=== PATIENT | male | born 1940 | race Caucasian/White ===

== ENCOUNTER 2025-02-26 21:51 | Inpatient (IN) | payer OTHER, SELFPAY ==
[2025-02-26 14:11] VITALS: BP 174/79
[2025-02-26 14:15] VITALS: BP 174/79
[2025-02-26 14:41] LABS: % Basophils 0.4 % (0-2); % Eosinophils 0.4 % (0-6); % Immature Granulocytes 0.5 % (0-0.5); % Monocytes 8.8 % (1.7-9.3); % Neutrophils 84.9 % (42.2-75.2); Absolute Basophils 0.1 10^3/uL (0-0.2); Absolute Eosinophils 0.1 10^3/uL (0-0.7); Absolute Immature Granulocytes 0.1 10^3/uL (0-0.05); Absolute Lymphocytes 0.7 10^3/uL (1.2-3.4); Absolute Monocytes 1.2 10^3/uL (0.1-0.6); Absolute Neutrophils 11.3 10^3/uL (1.4-6.5); Hematocrit 45.2 % (39.0-52.0); Hemoglobin 15.7 g/dL (13.0-18.0); Mean Corp Hgb Conc. 34.7 g/dL (33.0-37.0); Mean Corpuscular Hgb 31.5 pg (27.0-31.0); Mean Corpuscular Volume 90.8 fL (80.0-94.0); Mean Platelet Volume 8.7 fL (7.4-10.4); Nucleated Red Blood Cells % 0 % (-); Platelet Count 240 10^3/uL (130-400); Red Blood Cell Count 4.98 10^6/uL (4.70-6.10); Red Cell Dist. Width 12.3 % (11.5-14.5); White Blood Cell Count 13.3 10^3/uL (4.8-10.8)
[2025-02-26 14:47] LABS: ALT (SGPT) 116 U/L (0-50); AST (SGOT) 200 U/L (17-59); Albumin 4.6 g/dl (3.5-5.0); Alkaline Phosphatase 94 U/L (38-126); Blood Urea Nitrogen 24 mg/dl (9-20); Carbon Dioxide 28 mmol/L (22-30); Chloride 103 mmol/L (98-107); Glucose 136 mg/dl (70-99); Potassium 3.8 mmol/L (3.5-5.1); Sodium 144 mmol/L (135-145); Total Bilirubin 1.5 mg/dl (0.2-1.3); Total Protein 7.2 g/dl (6.3-8.2); eGFR > 60.00
[2025-02-26 14:58] LABS: Troponin I < 0.012 ng/ml
--- NOTE | 2025-02-26 14:58 | ED.GENMED ---
History of Present Illness
<Ranjeet Deleon PA-C - Last Filed: 02/26/25 15:12>
General
Chief Complaint: Chest Pain
Source: patient
Exam Limitations: none
Time Seen by Provider: 02/26/25 14:39
History of Present Illness
History of Present Illness:
84-year-old male presents complaining of pain to the area underneath his ribs that started about 3 hours prior to arrival. Pain is made worse with deep breathing. He was slightly nauseous but no vomiting. The pain does not radiate to the back.
No recent travel or surgery. He denies cough fever or hemoptysis. No prior abdominal surgical history
Phy Exam
<Ranjeet Deleon PA-C - Last Filed: 02/26/25 15:12>
Physical Exam
Physical Exam:
General: Well-appearing male no acute respiratory distress HEENT: Normocephalic atraumatic
Heart: Regular rate and rhythm
Lungs: Clear no wheeze
Abd: Soft, tender to RUQ, mild gaurding, + han's sign
Ext: NO cyanosis
Scores
<Saeed Stover Jr., PA-C - Last Filed: 02/26/25 20:49>
Heart Score for Chest Pain Patients
STEMI patient?: Not applicable
History: Slightly or Non-Suspicious
ECG: Normal
Age: >/= 65 years
Risk Factors: >/= 3 Risk Factors or History of CAD
Troponin: </= Normal Limit
Heart Score for Chest Pain Patients: 4
Heart Score Risk: 20.3% MACE over next 6 weeks
Course
<Ranjeet Deleon PA-C - Last Filed: 02/26/25 15:12>
Orders/Labs/Results
Orders:
Orders
02/26/25 14:14
Electrocardiogram (*1) Urgent
Reason for Study: Chest Pain
EKG- Treatment ONCE
02/26/25 14:22
CMP [Comprehensive Metabolic Panel] Urgent
Complete Blood Count/With Diff Urgent
Lipase Urgent
Comment: ADD ON
Troponin I Urgent
02/26/25 14:54
CR Chest - 2 Views Urgent
Comment:
Reason For Exam: chest pain
US Abdomen Complete/Upper Urgent
Comment:
Reason For Exam: ruq pain
02/26/25 14:55
Add On- LAB Urgent
Tests Added?: lipase
Abnormal Lab Results
02/26/25
14:22
WBC 13.3 H 10^3/uL
(4.8-10.8)
MCH 31.5 H pg
(27.0-31.0)
Abs Immat Gran (auto) 0.1 H 10^3/uL
(0-0.05)
Absolute Neuts (auto) 11.3 H 10^3/uL
(1.4-6.5)
Absolute Lymphs (auto) 0.7 L 10^3/uL
(1.2-3.4)
Absolute Monos (auto) 1.2 H 10^3/uL
(0.1-0.6)
Neutrophils % 84.9 H %
(42.2-75.2)
Lymphocytes % 5.0 L %
(20.5-51.1)
BUN 24 H mg/dl
(9-20)
Glucose 136 H mg/dl
(70-99)
Total Bilirubin 1.5 H mg/dl
(0.2-1.3)
AST 200 H U/L
(17-59)
ALT 116 H U/L
(0-50)
02/26/25 14:22
02/26/25 14:22
Vital Signs
Initial and Last Documented VS:
Initial Vital Signs
BP Pulse Ox
174/79 91
02/26/25 14:11 02/26/25 14:11
Last Documented Vital Signs
Temp Pulse Resp BP Pulse Ox
97.9 F 55 16 174/79 99
02/26/25 14:35 02/26/25 14:15 02/26/25 14:15 02/26/25 14:15 02/26/25 14:15
<Saeed Stover Jr., PA-C - Last Filed: 02/26/25 20:49>
Orders/Labs/Results
Orders:
Orders
02/26/25 14:14
Electrocardiogram (*1) Urgent
Reason for Study: Chest Pain
EKG- Treatment ONCE
02/26/25 14:22
CMP [Comprehensive Metabolic Panel] Urgent
Complete Blood Count/With Diff Urgent
Lipase Urgent
Comment: ADD ON
Troponin I Urgent
02/26/25 14:54
CR Chest - 2 Views Urgent
Comment:
Reason For Exam: chest pain
US Abdomen Complete/Upper Urgent
Comment:
Reason For Exam: ruq pain
02/26/25 14:55
Add On- LAB Urgent
Tests Added?: lipase
Abnormal Lab Results
02/26/25
14:22
WBC 13.3 H 10^3/uL
(4.8-10.8)
MCH 31.5 H pg
(27.0-31.0)
Abs Immat Gran (auto) 0.1 H 10^3/uL
(0-0.05)
Absolute Neuts (auto) 11.3 H 10^3/uL
(1.4-6.5)
Absolute Lymphs (auto) 0.7 L 10^3/uL
(1.2-3.4)
Absolute Monos (auto) 1.2 H 10^3/uL
(0.1-0.6)
Neutrophils % 84.9 H %
(42.2-75.2)
Lymphocytes % 5.0 L %
(20.5-51.1)
BUN 24 H mg/dl
(9-20)
Glucose 136 H mg/dl
(70-99)
Total Bilirubin 1.5 H mg/dl
(0.2-1.3)
AST 200 H U/L
(17-59)
ALT 116 H U/L
(0-50)
02/26/25 14:22
02/26/25 14:22
Vital Signs
Initial and Last Documented VS:
Initial Vital Signs
BP Pulse Ox
174/79 91
02/26/25 14:11 02/26/25 14:11
Last Documented Vital Signs
Temp Pulse Resp BP Pulse Ox
97.9 F 55 16 174/79 99
02/26/25 14:35 02/26/25 14:15 02/26/25 14:15 02/26/25 14:15 02/26/25 14:15
<Ranjeet Deleon PA-C - Last Filed: 02/26/25 15:12>
MDM/Problems Addressed
Differential Diagnosis Includes:
RUQ pain. Question biliary colic versus pneumonia versus pancreatitis versus constipation
Labs demonstrate slight elevation in the liver functions. Ultrasound abdomen pending chest x-ray pending
<Saeed Stover Jr., PA-C - Last Filed: 02/26/25 20:49>
*Critical Care Note
Total Time (30-74mins, 75-104mins- exclusive of procedures): Not Applicable
<Saeed Stover Jr., PA-C - Last Filed: 02/26/25 20:49>
Update Note
Update Note:
0: ES//patient found to have inflammation of the gallbladder as well as distention. Concern for possible early cholecystitis. Plan to admit for monitoring overnight and general surgery consultation in the morning. General surgery was consulted.
ED Attending Note
<Ranjeet Deleon PA-C - Last Filed: 02/26/25 15:12>
-
Portions of this chart may have been created with voice recognition software.� Occasional wrong word or��sound alike� substitutions may have occurred due to the inherent limitations of voice recognition software.
Discharge Plan
Departure
Patient Disposition: Admit
Date of Disposition: 02/26/25
Time of Disposition: 20:49
Admit to: Med/Surg
Admit to doctor: Estella
Presentation/result/management discussed w/ accepting MD/DO: Hospitalist
Patient with high blood pressure during this ER visit?: No
Condition: Good
Covid-19: Not Applicable
Discharge Problem:
Acute cholecystitis
Prescriptions:
No Action
omeprazole
1 tab PO . DIRECTED
sertraline
1 tab PO . DIRECTED
Referrals:
Iban Campuzano MD [Family Provider] -
Interventions
Interventions:
*Risk Screen - Suicide Last Done: 02/26/25 14:17
*General Assessment Last Done: 02/26/25 14:17
*Neglect/Abuse Screening Last Done: 02/26/25 14:17
*ED- Fall Risk Assessment Last Done: 02/26/25 14:28
*ED COVID-19 Vaccine History Last Done: 02/26/25 14:28
ED- Cardiac Assessment Last Done: 02/26/25 14:29
Discharge Date and Time
Print Language: DANISH
[2025-02-26 15:25] LABS: Lipase 161 U/L (23-300)
[2025-02-26 19:50] VITALS: BP 130/67
[2025-02-26 20:00] VITALS: BP 127/59
--- NOTE | 2025-02-26 20:52 | W.PN.UPDATE ---
Update Note
Progress Note Update
VSS
02/26/25
14:15 02/26/25
14:35
Temp 97.9 F
Temp route: Oral
Pulse 55
Resp Rate 16
Blood pressure 174/79
SaO2 99
Oxygen Mode of Delivery Room air
PE
Gen: not toxic
HEENT: anicteric
Neck: supple
Lungs: CTA
Cor: RRR S1 S2
Abdomen: Soft, tender to RUQ, mild guarding, + han's sign
HOSPICE ENTRANCE ATTENDANT: AAO3 , grossly NFND
MS: no edema
Psych: appropriate
02/26/25
14:22
WBC 13.3 H
Hgb 15.7
Plt Count 240
BUN 24 H
Creatinine 1.0
eGFR > 60.00
Glucose 136 H
Total Bilirubin 1.5 H
AST 200 H
ALT 116 H
Troponin I < 0.012
Lipase 161
CXR
1. Mild bilateral lung hyperinflation suggesting chronic obstructive pulmonary disease (COPD).
2. Mild biapical pleural thickening and subpleural scarring.
3. Superior endplate compression fracture of a midthoracic vertebral body.
US Abdomen complete/ upper
1. Mild gallbladder distention and diffuse gallbladder wall thickening.
2. Sludge layering in the gallbladder fundus.
3. Mild splenomegaly.
4. Mild chronic bilateral renal disease.
5. Severe calcific atherosclerotic plaque in the abdominal aorta.
NO PRIOR hospitalist admission:
ASSESSMENT & PLAN
Highly suspicious for acute acalculous cholecystitis ? passage of stone
Clinical and Sono POS RUQ tenderness
Afebrile leucocytosis with transaminitis
HX PCN allergy
- NPO and IVF
- PRN Narcotic analgesia
- PRN anti emetics
- Empiric IV LVQ and flagyl
- Trend T , WCC and LFTs daily
- GS consulted
GERD
- IV PPI daily
DVT Px: SQH
Full code
IP MS
--- NOTE | 2025-02-26 20:55 | HPS.HSE ---
Family Physician
-
Family Physician: Iban Campuzano
Chief Complaint
-
Right upper quadrant abdominal pain with nausea
History of Present Illness
84-year-old male complaining of pain in his right upper quadrant starting about 3 hours prior to arrival in the ER approximate 11:30 AM, along with nausea. He denies any radiation to the back. The patient denies headache, fever, chills, chest
pain, palpitations, shortness of breath, cough, vomiting, diarrhea, urinary symptoms. Ultrasound in the ER which shown to have inflammation of the gallbladder as well as distention concerning for possible early cholecystitis Case was discussed with
general surgery by the ER who will see in the a.m. patient has past medical history of GERD, depression.
Medical History
Past Medical History
Past Medical History: Reports Other
Additional Past Medical History:
GERD
Depression
Past Surgical History: Reports Other
Additional Past Surgical History:
Great ankles Achilles rupture repair
Inguinal hernia repair 1980s unsure what side
Social History
Tobacco: Non-smoker
Alcohol: None
Drug: None
Personal: Single
Living: Alone
Employment: Retired
Family History
Family History: Other (Father history dementia, DM 2, mother history breast cancer, fall with fractured leg of pneumonia, 2 sisters healthy)
Allergies / Home Medications
Allergies reflects when Allergies were last updated in [facility].
Home Medications with original date entered in [facility]
Allergy/Medication List:
Allergies
Allergy/AdvReac Type Severity Reaction Status Date / Time
Penicillins Allergy Pharmacy Verified 02/26/25 14:13
to Review
Home Medications
omeprazole 1 tab PO . DIRECTED 02/26/25
sertraline 1 tab PO . DIRECTED 02/26/25
Review of Systems
-
History Source: Patient and Family (Son Dc at bedside power of electro tech)
A 12 point ROS was completed and negative except as noted: Yes
Constitutional: Denies Fever or Chills
EENT: Denies Sore Throat or Runny Nose
Respiratory: Denies Cough or Trouble Breathing
Cardiac: Denies Chest Pain, Diaphoresis, Palpitations or Syncope
Abdomen/GI: Reports Abdominal Pain (Right upper quadrant) and Nausea; Denies Vomiting, Diarrhea, Constipated or Bloody Stools
: Denies Dysuria, Frequency, Flank Pain, Incontinence, Difficulty Voiding or Urgency
Musculoskeletal: Denies Joint Pain or Edema
Skin: Denies Itching or Rash
Neurological: Denies Dizzy, Headache or Weakness
Endocrine: Reports No Symptoms
Hematologic/Lymphatic: Reports No Symptoms
Psych: Reports Calm
Physical Exam
Vital Signs
Vital Signs
Temp Pulse Resp BP Pulse Ox
97.9 F 55 16 174/79 99
02/26/25 14:35 02/26/25 14:15 02/26/25 14:15 02/26/25 14:15 02/26/25 14:15
Physical Exam
General: Conversant; No Pain, Fever or Chills
HEENT: NormoCephalic, Anicteric, Moist mucous membranes, PERRLA, [place] Conjunctivae and No Ptosis
Respiratory: Clear; No Wheezes, Rales or Rhonchi
Cardiac: S1/S2 and Regular Rhythm; No Murmur, Rub, Gallop or Peripheral Edema
GI: Soft, Non Distended, Normal Bowel Sounds, Tender (Slight tenderness right upper quadrant) and No Hepatosplenomegaly
Rectal: Deferred by Provider
Genito-urinary: Deferred by me
Musculoskeletal: No Clubbing, No Cyanosis and No Edema
Skin: Warm and Dry; No Rash or Jaundice
Neuro: AO x 3, No Motor Deficits, Nonfocal/grossly intact, Cranial Nerves Intact and No Sensory Deficits; No Slurred Speech, Facial Droop, Tremors or Sedated
Psych: Calm
Laboratory Results
-
02/26/25 14:22
02/26/25 14:22
Laboratory Results
Total Bilirubin 1.5 mg/dl (0.2-1.3) H 02/26/25 14:22
AST 200 U/L (17-59) H 02/26/25 14:22
ALT 116 U/L (0-50) H 02/26/25 14:22
Alkaline Phosphatase 94 U/L (38-126) 02/26/25 14:22
Troponin I < 0.012 ng/ml 02/26/25 14:22
Lipase 161 U/L (23-300) 02/26/25 14:22
Data Reviewed
-
Ultrasound: Report Reviewed by me
Lab Data: Labs Reviewed by me
Impression/Plan
-
Impression/plan:
Admit to MedSurg
#Abdominal pain/acute transaminitis concern for acute cholecystitis
Symptoms today right upper quadrant pain with nausea x 3 hours
WBC 13.3 with left shift, HR 55, temp 97.9 F, 174/79
T. bili 1.5, AST 200, ALT 116
- N.p.o.
- IV NSS 80 cc an hour
-pain control tramadol as needed moderate pain, IV morphine severe pain
-IV Zofran as needed
-IV Levaquin, IV Flagyl
- Consult general surgery-Dr. Mckeon aware
- Will follow CBC, CMP
EKG: Sinus bradycardia 55 bpm, QTc 424 MS otherwise normal
#GERD
Will change oral omeprazole to IV Protonix 40 mg daily
#Depression
Continue Zoloft
DVT prophylaxis
SCDs
Full code
[2025-02-26 21:40] VITALS: BMI 23.8
[2025-02-26] MEDS: LEVAQUIN 100 IV (22:24)
--- NOTE | 2025-02-26 23:10 | PTCARENOTE ---
Pt admitted to 337-1 from ED. Ambulated with steady gait to bed. AAOx3, VSS, denies pain. Call tinajero within reach.
[2025-02-26 23:15] VITALS: BP 112/59
[2025-02-26 23:16] VITALS: BMI 22.7
[2025-02-26] MEDS: ZOLOFT 50 MG PO (23:33)
[2025-02-26] MEDS: NSS 1000 IV (23:33)
[2025-02-26] MEDS: FLAGYL 500 MG 100 IV (23:33)
[2025-02-27] VITALS (10 sets, daily range): BP systolic 114–142; BP diastolic 50–77; PULSE 63–64; O2SAT 96
[2025-02-27] MEDS: MELATONIN 5 MG PO ×2 (01:57→21:25)
[2025-02-27] MEDS: TYLENOL 650 MG PO (02:02)
[2025-02-27 06:09] LABS: % Basophils 0.3 % (0-2); % Eosinophils 0.2 % (0-6); % Immature Granulocytes 0.5 % (0-0.5); % Lymphocytes 2.3 % (20.5-51.1); % Monocytes 7.8 % (1.7-9.3); % Neutrophils 88.9 % (42.2-75.2); Absolute Immature Granulocytes 0.1 10^3/uL (0-0.05); Absolute Lymphocytes 0.3 10^3/uL (1.2-3.4); Absolute Monocytes 0.9 10^3/uL (0.1-0.6); Absolute Neutrophils 9.9 10^3/uL (1.4-6.5); Hematocrit 37.9 % (39.0-52.0); Hemoglobin 12.9 g/dL (13.0-18.0); Mean Corpuscular Hgb 30.8 pg (27.0-31.0); Mean Corpuscular Volume 90.5 fL (80.0-94.0); Nucleated Red Blood Cells % 0 % (-); Platelet Count 158 10^3/uL (130-400); Red Blood Cell Count 4.19 10^6/uL (4.70-6.10); Red Cell Dist. Width 12.3 % (11.5-14.5); White Blood Cell Count 11.1 10^3/uL (4.8-10.8)
[2025-02-27] MEDS: FLAGYL 500 MG 100 IV ×2 (06:13→22:41)
[2025-02-27 06:25] LABS: Albumin 3.8 g/dl (3.5-5.0); Alkaline Phosphatase 116 U/L (38-126); Blood Urea Nitrogen 19 mg/dl (9-20); Calcium 9.4 mg/dl (8.4-10.2); Carbon Dioxide 27 mmol/L (22-30); Chloride 106 mmol/L (98-107); Estimated Creatinine Clearance 57 ml/min; Glucose 116 mg/dl (70-99); HDL Cholesterol 58 mg/dl; LDL Cholesterol, Calculated 119 mg/dl; Potassium 4.3 mmol/L (3.5-5.1); Sodium 140 mmol/L (135-145); Total Bilirubin 3.7 mg/dl (0.2-1.3); Total Cholesterol 190 mg/dl (50-199); Total Protein 5.9 g/dl (6.3-8.2); Triglyceride 69 mg/dl (10-149); Very Low Density Lipoprotein 13 mg/dl (0-30); eGFR > 60.00
[2025-02-27 06:37] LABS: ALT (SGPT) 870 U/L (0-50); AST (SGOT) 779 U/L (17-59)
[2025-02-27] MEDS: PROTONIX IV 40 MG IV (07:58)
[2025-02-27] MEDS: NSS (PRESERVATIVE FREE) 10 ML IV (07:58)
--- NOTE | 2025-02-27 10:07 | CON.GS ---
Addendum entered and electronically signed by Giacomo Rivera MD 02/27/25 15:50:
I saw and examined the patient independently.
The Financial Services Manager's note was reviewed and I agree with the note, assessment and plan except where noted below.
Comment: This is an 84-year-old male with a history of an open left inguinal hernia repair who presents with right upper quadrant abdominal pain radiating across his epigastrium found to have elevated LFTs, rising today. Ultrasound shows sludge in
the thickened, distended gallbladder.
I did discuss this case with will plan for laparoscopic cholecystectomy with cholangiogram in the OR today. I did discuss this case preoperatively with GI and as they have a significant number of procedures that it would be unlikely to perform an
ERCP today so we will forego MRCP for now and plan for GI consult pending the findings of the cholangiogram.
N.p.o., IV fluids, IV antibiotics ordered.
Risks/Benefits/Alternatives, expected postoperative course and possible complications (bleeding, infection, injury to surrounding structures, acute/chronic pain) discussed at length. Patient wishes to proceed with surgery. All questions answered.
Consent obtained.
I spent 65 minutes in total for the care of this patient today including direct patient care and counseling, reviewing labs, imaging, coordination of care, as well as documentation.
Original Note:
Consultation
-
Date/Time Consultation Performed: 02/27/25914
Medical History
-
Chief Complaint: RUQ pain
History of Present Illness:
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
associated nausea. His symptoms persisted throughout the day causing him to present through the ED for evaluation. He denies fevers or chills. He denies bowel or bladder changes. He denies prior episodes in the past. On exam, the RUQ is mildly
tender to palpation. Mild jaundice present.
Past Medical History
Past Medical History: GERD (Davila's)
Past Surgical History: Hernia Repair (open left inguinal hernia repair), Orthopedic (Achilles repair) and Other (Cataracts)
Social History
Tobacco: Non-Smoker
Alcohol: None
Living: Alone
Employment: Retired
Family History
Family History: Cancer (father prostate, mother breast)
Allergies / Home Medications
Allergy/AdvReac Type Severity Reaction Status Date / Time
Penicillins Allergy Pharmacy Verified 02/26/25 14:13
to Review
�Medication �Instructions �Recorded �Confirmed �Type
omeprazole 1 tab PO . DIRECTED 02/26/25 02/26/25 History
sertraline 50 mg PO HS 02/26/25 02/26/25 History
Review of Systems
-
History Source: Patient
All other systems: Negative unless noted
A 10 point review of systems was completed, and was negative except as per HPI.
Physical Exam
Vital Signs
Temp Pulse Resp BP Pulse Ox
97.5 F 61 16 116/64 98
02/27/25 07:39 02/27/25 07:39 02/27/25 07:39 02/27/25 07:39 02/27/25 07:39
02/26/25 02/27/25 02/28/25
06:59 06:59 06:59
Actual Weight 65.544 kg
Body Mass Index (BMI) 22.7
Lab Results
02/27/25 05:10
02/27/25 05:10
WBC 11.1 10^3/uL (4.8-10.8) H 02/27/25 05:10
Hgb 12.9 g/dL (13.0-18.0) L 02/27/25 05:10
Hct 37.9 % (39.0-52.0) L 02/27/25 05:10
Plt Count 158 10^3/uL (130-400) D 02/27/25 05:10
Abs Immat Gran (auto) 0.1 10^3/uL (0-0.05) H 02/27/25 05:10
Neutrophils % 88.9 % (42.2-75.2) H 02/27/25 05:10
Physical Exam
General: Well Developed and Well Nourished
HEENT: Moist Mucous Membranes
Respiratory: Non Labored Respirations
GI: Soft, Non Distended and Tender (RUQ)
Skin: Warm, Dry and Jaundice (mild)
Neuro: Awake, Alert and AO x 3
Psych: Calm
Data Reviewed
-
Ultrasound: Image Personally Visualized and interpreted, Report Reviewed by me, Discussed with Physician and Discussed with Patient
Labs: Labs Reviewed by me, Discussed with Physician and Discussed with Patient
Old Records: Reviewed
Assessment / Plan
-
84 yo male presenting through the ED with RUQ pain radiating into the epigastrium and into his back with associated nausea over the past 24hours. US imaging concerning for acute cholecystitis with cholelithiasis present, mild gallbladder distention
and diffuse gallbladder wall thickening present. Leukocytosis present on admission and trending down on ABX which were initiated in the ED. LFT's mildly elevated on presentation and now trending upwards (bili 1.5 to 3.7) raising suspicion for
possible choledocholithiasis. Afebrile with stable vital signs.
--Check MRCP, may need GI evaluation for ERCP pending findings
--Tentative OR today for lap don
--Keep NPO
--Analgesics/antiemetics prn
--IVF while NPO
--SCDs for VTE ppx
--- NOTE | 2025-02-27 10:45 | W.PN.HOSP.TC ---
Today's Communication/Plan
-
see A/P
Assessment / Plan
Assessment / Plan
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 Associated with nausea.
Ultrasound in the ER showed inflammation of the gallbladder as well as distention, concerning for possible early cholecystitis.
Abd US:
1. Mild gallbladder distention and diffuse gallbladder wall thickening.
2. Sludge layering in the gallbladder fundus.
3. Mild splenomegaly.
4. Mild chronic bilateral renal disease.
5. Severe calcific atherosclerotic plaque in the abdominal aorta.
A/P:
# Likely acute acalculous cholecystitis, ?passage of stone
# leucocytosis with transaminitis, due to above
Abd pain has resolved, overall asymptomatic and clinically stable
NPO and IVF
Pain control with IV Morphine PRN
Zofran PRN
IV Protonix for gastric protection
Cont empiric Abx Levaquin and Flagyl
trend LFT
Follow MRCP
GS on board, plan for OR today for lap don
# GERD
IV PPI daily
# Depression
Continue Zoloft
DVT prophylaxis: SCDs
Full code
DW son at bedside
Anticipated Discharge: > 48 hours
Subjective/Interval History
-
Date of Service: February 27, 2025
Objective Data
-
Labs:
Laboratory Results
02/27/25
05:10
WBC 11.1 H
Hgb 12.9 L
Hct 37.9 L
Plt Count 158 D
Sodium 140
Potassium 4.3
Chloride 106
Carbon Dioxide 27
BUN 19
Creatinine 0.9
Glucose 116 H
Calcium 9.4
Total Bilirubin 3.7 H D
AST 779 H*
ALT 870 H*
Alkaline Phosphatase 116
Vital Signs:
Vital Signs
Temp Pulse Resp BP Pulse Ox
36.4 C 61 16 116/64 98
02/27/25 07:39 02/27/25 07:39 02/27/25 07:39 02/27/25 07:39 02/27/25 07:39
I&O
02/26/25 02/27/25 02/28/25
06:59 06:59 06:59
Intake Total 770 / 770
Balance 770 / 770
Review of Systems
-
History Source: Patient
All other systems: Reviewed and negative
Abdomen/GI: Denies Abdominal Pain, Nausea or Vomiting
Physical Exam
-
General: Well Developed, Well Nourished, No Apparent Distress, Comfortable and Conversant; Negative Respiratory Distress
HEENT: Normocephalic, Atraumatic, Nose Appears Normal and Ears Appear Normal; Negative Oxygen
Respiratory: Clear to Auscultation and Non Labored Respirations; Negative Accessory Resp Muscle Use
Cardiac: Regular Rhythm and S1/S2
GI: Soft, Nontender and Nondistended
Skin: Warm and Dry
Neuro: Awake, Alert, Oriented, AO x 3 and Nonfocal/Grossly Intact
Psych: Calm and Intact Judgement/Insight
Data Reviewed
-
Ultrasound: Report Reviewed by me
Labs: Labs Reviewed by me
[2025-02-27] MEDS: FLAGYL 500 MG IV (13:29)
--- NOTE | 2025-02-27 14:26 | W.SUR.PREOP ---
Pre-Operative Surgical Note
-
I have examined this patient prior to the performance of the scheduled procedure.
The patient's condition is unchanged from the time of the current History and
Physical and the patient is able to undergo the scheduled procedure.
--- NOTE | 2025-02-27 14:26 | W.IMMPOSTOP ---
Surgical Immed Post Op Note
-
Primary Surgeon: Giacomo Rivera MD
Assisting Surgeon: JEREMY Christopher
Pre-op Diagnosis: Acute cholecystitis, elevated liver enzymes
Post-op Diagnosis: Same
Procedure Performed: Laparoscopic cholecystectomy with cholangiogram
Anesthesia Type: General
Specimen / Cultures: Gallbladder and contents
Estimated Blood Loss: 3 cc
Complications: None
Operative Findings: Fairly the normal-appearing gallbladder but distended with some mild inflammation in the cystic triangle. Critical view of safety obtained prior to a cholangiogram which demonstrated a mildly dilated common bile duct but no
distal filling defects.
POST OP PLAN:
Imaging: None
Labs: Routine AM
Diet: Advance to low-fat as tolerated
Analgesia: Toradol as needed. Avoid Tylenol given elevated LFTs. Jeannine 5mg q6 PRN, Dilaudid 0.5mg q2h PRN
Neuro/vascular checks: q4h
AC/AP: Hold Therapeutic AC, Ok for DVT PPx
Activity: Ad Jaja
Wound/Incisions/Drains: Routine
Abx: Would continue antibiotics x 24 hours
Dispo: RNF, anticipate discharge home tomorrow pending downtrending LFTs.
--- NOTE | 2025-02-27 14:31 | OR.RPT ---
Operative Report
Operative Report
Patient Name: Pacheco Luna
: 1940
Date of Operation: 02/27/2025
Preoperative Diagnosis: Acute cholecystitis
Postoperative Diagnosis: Same
Procedure(s):
Laparoscopic Cholecystectomy with Cholangiogram
Surgeon(s):
Dr. Rivera
Film Color Tester(s):
JEREMY Christopher
Anesthesia: General
Estimated Blood Loss: 3 cc
Urine Output: None
Drains/Lines/Implants: None
Specimens:
1. Gallbladder and contents
HPI/Surgical Indications:
This is an 84-year-old male who presents with 1 day of right upper quadrant abdominal pain. Exam, labs and imaging are consistent with acute cholecystitis. Risks/Benefits/Alternatives were discussed at length, and the patient agreed to proceed with
surgery.
Operative Findings: Fairly the normal-appearing gallbladder but distended with some mild inflammation in the cystic triangle. Critical view of safety obtained prior to a cholangiogram which demonstrated a mildly dilated common bile duct but no
distal filling defects.
Procedure Description:
The patient was brought to the Operating Room and placed in the supine position with one arm tucked. Following uneventful induction of general endotracheal anesthesia, an orogastric tube was placed. The abdomen was prepped and draped in the usual
sterile fashion. A timeout was performed confirming the procedure, consent, and that IV antibiotics were infused and sequential compression devices were confirmed to be on. The abdomen was entered using an infraumbilical open Thong technique with
a 12 mm balloon-tipped trocar. Pneumoperitoneum to 15 mmHg pressure was obtained without difficulty and we confirmed that no injury had occurred during our entry. The patient was positioned in reverse Trendelenberg and rotated with the right side
up slightly. Three (3) 5mm trocars were then placed along the right subcostal margin. The gallbladder was distended but otherwise looked normal. A locking grasping forceps was placed on the fundus of the gallbladder where it was then retracted
cephalad and to the right. Using appropriate grasping instruments, the peritoneum overlying the triangle of Calot was incised and extended superiorly on both the anterior and posterior gallbladder jimenes. The infundibulum was dissected off the
cystic plate. The cystic triangle was dissected until a critical view of safety was achieved. The cystic artery was medialized, dissected and controlled with 2 proximal clips and 1 distal. The cystic duct/gallbladder junction in turn was identified,
dissected circumferentially and a clip was placed. A ductotomy was made and a cholangiocatheter on an Tinajero clamp was inserted into the cystic duct. A C-arm was draped and brought into the field. An intra-operative cholangiogram was performed and
was noted to have:
No filling defects in the biliary tree
Slight dilation of the common bile ducts
Brisk flow of contrast into the duodenum
Normal biliary anatomy
The catheter was then removed and the cystic duct was controlled with a clip followed by 0 PDS Endoloop. After ensuring both the artery and duct were divided, the gallbladder was freed from the liver using electrocautery. There was some spillage
of bile, but no spillage of stones. The gallbladder bed was inspected and excellent hemostasis was obtained. The gallbladder was extracted through the 12 mm trocar site using an endocatch bag. The abdomen was again irrigated and excellent
hemostasis was assured. All remaining trocars were then removed and the pneumoperitoneum was evacuated. The 12 mm trocar site was closed using 0 PDS suture. All trocar sites were closed at the skin level using 4-0 Monocryl followed by Dermabond.
Overall, the patient tolerated the procedure well and was taken to the Recovery Room postoperatively in stable condition.
I was the attending physician and performed the procedure with assistance of the PA above. The assistance of JEREMY Christopher was required due to the complexity of the procedure. During the procedure Neha assisted with port placement, tissue
retraction, resection, and closure of the wounds. I was present for all portions of the case, excluding skin closure.
Giacomo Rivear MD
[2025-02-27] MEDS: NSS 1000 IV (17:24)
[2025-02-27] MEDS: ULTRAM 50 MG PO (20:04)
[2025-02-27] MEDS: LEVAQUIN 100 IV (21:23)
[2025-02-27] MEDS: ZOLOFT 50 MG PO (21:24)
[2025-02-27] MEDS: MORPHINE SULFATE 2 MG IV (22:58)
[2025-02-28 03:06] VITALS: BP 109/50
[2025-02-28] MEDS: FLAGYL 500 MG 100 IV (05:18)
[2025-02-28 05:48] LABS: % Basophils 0.1 % (0-2); % Eosinophils 0.1 % (0-6); % Immature Granulocytes 0.5 % (0-0.5); % Lymphocytes 2.1 % (20.5-51.1); % Monocytes 7.2 % (1.7-9.3); Absolute Immature Granulocytes 0.1 10^3/uL (0-0.05); Absolute Lymphocytes 0.2 10^3/uL (1.2-3.4); Absolute Monocytes 0.8 10^3/uL (0.1-0.6); Absolute Neutrophils 9.9 10^3/uL (1.4-6.5); Hematocrit 35.9 % (39.0-52.0); Hemoglobin 12.1 g/dL (13.0-18.0); Mean Corp Hgb Conc. 33.7 g/dL (33.0-37.0); Mean Corpuscular Hgb 30.7 pg (27.0-31.0); Mean Corpuscular Volume 91.1 fL (80.0-94.0); Mean Platelet Volume 9.1 fL (7.4-10.4); Nucleated Red Blood Cells % 0 % (-); Platelet Count 151 10^3/uL (130-400); Red Blood Cell Count 3.94 10^6/uL (4.70-6.10); Red Cell Dist. Width 12.6 % (11.5-14.5)
[2025-02-28 07:00] LABS: ALT (SGPT) 539 U/L (0-50); AST (SGOT) 347 U/L (17-59); Albumin 3.4 g/dl (3.5-5.0); Alkaline Phosphatase 110 U/L (38-126); Blood Urea Nitrogen 24 mg/dl (9-20); Calcium 8.3 mg/dl (8.4-10.2); Carbon Dioxide 23 mmol/L (22-30); Chloride 108 mmol/L (98-107); Estimated Creatinine Clearance 57 ml/min; Glucose 99 mg/dl (70-99); Magnesium 1.8 mg/dl (1.6-2.3); Potassium 4.4 mmol/L (3.5-5.1); Sodium 140 mmol/L (135-145); Total Bilirubin 2.3 mg/dl (0.2-1.3); Total Protein 5.5 g/dl (6.3-8.2); eGFR > 60.00
[2025-02-28 07:57] VITALS: BP 105/57
[2025-02-28] MEDS: NSS (PRESERVATIVE FREE) 10 ML IV (09:38)
[2025-02-28] MEDS: PROTONIX IV 40 MG IV (09:38)
--- NOTE | 2025-02-28 09:48 | W.PN.GS2 ---
Today's Communication / Plan
-
Dispo planning
Assessment / Plan
-
This is an 84-year-old male POD #1 status post laparoscopic cholecystectomy for cholecystitis. Doing well, expected postoperative course.
Okay to DC from a surgery perspective.
[facility] instructions updated.
Time Spent
Total Time Spent with Patient (in minutes): 20
Subjective Data
-
Date of Service: February 28, 2025
Interval Events:
No acute events overnight. Slept well. Pain Controlled. Denies Nausea/Vomiting, +bowel function. Tolerating diet.
Objective Data
-
Intake and Output
02/27/25 02/28/25 03/01/25
06:59 06:59 06:59
Intake Total 770 / 770 2360 / 2360
Balance 770 / 770 2360 / 2360
Intake:
Oral fluids 120 / 120 1200 / 1200
IV fluids (Total) 450 / 450 860 / 860
Normosol 100 / 100
IV piggybacks 200 / 200 300 / 300
Other:
Number of approximated MODERATE 1 1
amounts of urine
Vital Signs
Temp Pulse Resp BP Pulse Ox
98.8 F 59 18 105/57 93
02/28/25 07:57 02/28/25 07:57 02/28/25 07:57 02/28/25 07:57 02/28/25 07:57
Lab Results
02/28/25 05:27
02/28/25 05:27
Calcium 8.3 mg/dl (8.4-10.2) L 02/28/25 05:27
Magnesium 1.8 mg/dl (1.6-2.3) 02/28/25 05:27
Total Bilirubin 2.3 mg/dl (0.2-1.3) H 02/28/25 05:27
AST 347 U/L (17-59) H 02/28/25 05:27
ALT 539 U/L (0-50) H* 02/28/25 05:27
Alkaline Phosphatase 110 U/L (38-126) 02/28/25 05:27
Total Protein 5.5 g/dl (6.3-8.2) L 02/28/25 05:27
Albumin 3.4 g/dl (3.5-5.0) L 02/28/25 05:27
Physical Exam
-
GENERAL/NEURO: Awake, Alert, no distress
CHEST: Unlabored breathing on RA
ABDOMEN: Soft, Non-Tender, Non-Distended, incisions clean dry and intact, some bruising around the periumbilical port site.
Patient has a stanford catheter: No
Patient has a central line: No
--- NOTE | 2025-02-28 10:03 | W.PN.HOSP.TC ---
Addendum entered and electronically signed by Annetta Werner MD 02/28/25 14:32:
Total DC time 40 minutes
Original Note:
Today's Communication/Plan
-
see A/P
Assessment / Plan
Assessment / Plan
HPI: 84-year-old male p/w right upper quadrant abd pain that started about 3 hours [employer]TE[employer]. Associated with nausea.
Ultrasound in the ER showed inflammation of the gallbladder as well as distention, concerning for possible early cholecystitis.
Abd US:
1. Mild gallbladder distention and diffuse gallbladder wall thickening.
2. Sludge layering in the gallbladder fundus.
3. Mild splenomegaly.
4. Mild chronic bilateral renal disease.
5. Severe calcific atherosclerotic plaque in the abdominal aorta.
A/P:
# acute mild cholecystitis
# leucocytosis with transaminitis, due to above
Abd pain has resolved, overall asymptomatic and clinically stable
s/p laparoscopic cholecystectomy with Cholangiogram by 02/27
Cont to trend LFT outpt with PCP (LFT improving, but still significantly elevated today)
Informed to cont low fat diet going forward
GS on board, cleared for DC
# GERD
IV PPI daily
# Depression
Continue Zoloft
DVT prophylaxis: SCDs
Full code
DW son on the phone
Anticipated Discharge: Today
Subjective/Interval History
-
Date of Service: February 28, 2025
Objective Data
-
Labs:
Laboratory Results
02/28/25
05:27
WBC 11.0 H
Hgb 12.1 L
Hct 35.9 L
Plt Count 151
Sodium 140
Potassium 4.4
Chloride 108 H
Carbon Dioxide 23
BUN 24 H
Creatinine 0.9
Glucose 99
Calcium 8.3 L
Total Bilirubin 2.3 H
AST 347 H
ALT 539 H*
Alkaline Phosphatase 110
Vital Signs:
Vital Signs
Temp Pulse Resp BP Pulse Ox
37.1 C 59 18 105/57 93
02/28/25 07:57 02/28/25 07:57 02/28/25 07:57 02/28/25 07:57 02/28/25 07:57
I&O
02/27/25 02/28/25 03/01/25
06:59 06:59 06:59
Intake Total 770 / 770 2360 / 2360
Balance 770 / 770 2360 / 2360
Review of Systems
-
History Source: Patient
All other systems: Reviewed and negative
Abdomen/GI: Denies Abdominal Pain
Physical Exam
-
General: Well Developed, Well Nourished, No Apparent Distress, Comfortable and Conversant; Negative Respiratory Distress
HEENT: Normocephalic, Atraumatic, Nose Appears Normal and Ears Appear Normal; Negative Oxygen
Respiratory: Clear to Auscultation and Non Labored Respirations; Negative Accessory Resp Muscle Use
Cardiac: Regular Rhythm and S1/S2
GI: Soft, Nontender and Nondistended
Skin: Warm and Dry
Neuro: Awake, Alert, Oriented, AO x 3 and Nonfocal/Grossly Intact
Psych: Calm and Intact Judgement/Insight
Data Reviewed
-
Ultrasound: Report Reviewed by me
Labs: Labs Reviewed by me
--- NOTE | 2025-02-28 10:26 | CM ---
CM met with Pacheco at bedside this AM. Pacheco is s/p cholecystectomy and cleared for discharge to home today.
Pacheco lives with his in a 2 story home with no entry steps. A full flight of steps to the 2nd level. Pacheco is very active; likes working outdoors; (I) amb and adls with no DME in the home. IMM given
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 She is currently at [facility] to give Pacheco time to recuperate at home. Pacheco's son will provide transport home today.
Plan: Discharge to home with no needs.
PCP: Iban Bhatt
Pharm: [facility] in [place]
[2025-02-28 11:32] VITALS: BP 112/62
--- NOTE | 2025-02-28 14:27 | W.DCSUMMARY ---
Discharge Summary
Discharge Data
Date of Admission: 02/26/25
Date of Discharge: 02/28/25
-
Pending Results: No
Hospital Course
Principal Diagnosis:
acute cholecystitis, mild
Transaminitis, due to above
Chronic Diagnoses:�
GERD
Depression, on Zoloft
Consultations:�
General surgery
Procedures:�
s/p laparoscopic cholecystectomy with Cholangiogram on 02/27
Clinical course:�
This is a 84-year-old male with past medical history as stated above, who presented with mild right upper quadrant abdominal pain associated with nausea.
Problem 1:
Acute cholecystitis, mild. This was associated with transaminitis.
His admission abdominal ultrasound showed inflammation of the gallbladder as well as distention, concerning for possible early cholecystitis.
He underwent laparoscopic cholecystectomy with cholangiogram by general surgery on 02/27.
His LFT was significantly elevated, but improved while in the hospital.
He has been informed to check repeat LFT with result to his PCP outpatient in 1 week.
He can continue low fat diet going forward.
As for the rest of his medical problems, they were stable during his hospital stay.
Discharge Plan
-
Patient Disposition: Home (Routine Discharge)
Discharge Diagnosis/Procedures: Mild cholecystitis status post Laparoscopic cholecystectomy with cholangiogram
Condition: Good
Diet: As tolerated, Low Fat and Low Cholesterol
Activity: No strenuous activity
Driving Restrictions: As prior to admission
Bathing Restrictions: OK to Shower
Blood Work: CBC and CMP in 1 week with your PCP
Activity Restrictions/Additional Instructions:
Instructions following Laparoscopic Cholecystectomy
Please call [phone] if you have any questions or concerns after your surgery.
Wound Care:
Your incisions are covered with skin glue which will come off on its own in 5-10 days.
It is ok to shower the day after your surgery. Do not scrub the incisions, let soap and water wash over them and pat dry.
� Bruising around your incisions is normal.
� Using ice packs will help minimize this swelling.
� No swimming or soaking incisions for 1 week.
� Your stitches will dissolve and do not need to be removed.
Urinary retention:
If you are unable to urinate 6-8 hours after your surgery, please call [phone] to discuss further management.
Activity:
No heavy lifting more than 15 pounds for the next 3 weeks, then you may gradually lift heavier objects as tolerated by discomfort. Otherwise activity as tolerated by your comfort level.
Pain Management:
Use Tylenol, ibuprofen and ice packs to treat your pain.
� You may take 650 milligrams of Tylenol (Max 3 grams per day) every 6 hours, and 600 mg of ibuprofen also every 6 hours. (you can alternate them every 3 hours)
� You may use an ice pack to your incision as needed.
� If you still have pain not controlled by these measures, take your prescription pain medication as prescribed.
Medications:
You may resume your home medications.
Bowel Medications:
Prescription pain medication can make you constipated. If you take this medication, also take colace 100 mg twice daily (this is over the counter). If this is not sufficient, you may take Miralax (polyethylene glycol) to help move your bowels.
Diet:
After your procedure, there are no dietary restrictions. However, you may notice some loose stools with fatty meals for up to 4 weeks after surgery. If this is the case, please adjust to a low fat diet as needed.
Driving restrictions:
No driving if you are taking prescription pain medication or if you think your normal reaction time and attentiveness has been slowed by your surgery.
Things to Look out for:
Worsening Abdominal pain, fever, jaundice, redness or drainage from incision
Call Doctor for:
Please call if you notice worsening redness or drainage from incision(s) lasting longer than 5 days after your surgery, any foul-smelling drainage from the incision, pain not controlled by pain medications, persistent nausea and vomiting, or for any
fevers greater than 101.3 F. The number for questions/concerns is [phone]
Follow-up:
A follow-up appointment will be scheduled with your surgeon in 3-4 weeks. Please call prior to your appointment if you have any questions or concerns. [phone]
Referrals:
Iban Campuzano MD [Family Provider] - in less than 1 week
Giacomo Rivera MD [Active] - in two to four weeks
Prescriptions:
Continued
omeprazole 20 mg capsule,delayed release(DR/EC)
20 mg PO DAILY
sertraline 50 mg tablet
50 mg PO HS
Discharge Orders:
Discharge Patient (As Directed); Ordered 02/28/25
Ordered By: Annetta Werner
Discharge Date and Time
Discharge Date/Time: 02/28/25 11:44
Print Language: LEBANESE
== END 2025-02-28 11:44 | disposition home or self-care (01) | DRG 419 ==
LOC: 3 WEST ACU 21:51
PROVIDERS: Clinical Nurse Specialist Family Health; ADMITTING PHYSICIAN Internal Medicine; ATTENDING PHYSICIAN Internal Medicine; CONSULT PHYSICIAN Surgery; EMERGENCY PHYSICIAN Student in an Organized Health Care Education/Training Program; FAMILY PHYSICIAN Family Medicine
PROC: BF502Z0 Other Imaging of Bile Ducts using Fluorescing Agent, Intraoperative (ICD-10-PCS; 2025-02-27)
PROC: 0FT44ZZ Resection of Gallbladder, Percutaneous Endoscopic Approach (ICD-10-PCS; 2025-02-27)
DX: K80.12 Calculus of gallbladder with acute and chronic cholecystitis without obstruction (principal); R74.01 Elevation of levels of liver transaminase levels; K21.9 Gastro-esophageal reflux disease without esophagitis; F32.A Depression, unspecified; I25.10 Atherosclerotic heart disease of native coronary artery without angina pectoris; Z79.899 Other long term (current) drug therapy
CPT/HCPCS: 88304; 71046; 74300; 76000; 76700; 80053; 80061; 83690; 83735; 84484; 85025; 93005; 97116; 97162; 97166; 99285; A4300; J1610

== ENCOUNTER 2025-09-15 09:55 | Inpatient (IN) | payer OTHER, SELFPAY ==
[2025-09-15] VITALS (13 sets, daily range): BP systolic 119–149; BP diastolic 55–106; BMI 24.0
[2025-09-15 04:30] LABS: Hematocrit 42.6 % (39.0-52.0); Hemoglobin 14.6 g/dL (13.0-18.0); Mean Corp Hgb Conc. 34.3 g/dL (33.0-37.0); Mean Corpuscular Volume 87.3 fL (80.0-94.0); Nucleated Red Blood Cells % 0 % (-); Platelet Count 215 10^3/uL (130-400); Red Cell Dist. Width 12.6 % (11.5-14.5)
[2025-09-15 04:57] LABS: ALT (SGPT) 61 U/L (0-50); AST (SGOT) 79 U/L (17-59); Albumin 4.6 g/dl (3.5-5.0); Alkaline Phosphatase 120 U/L (38-126); Blood Urea Nitrogen 21 mg/dl (9-20); Calcium 9.8 mg/dl (8.4-10.2); Carbon Dioxide 26 mmol/L (22-30); Chloride 107 mmol/L (98-107); Estimated Creatinine Clearance 54 ml/min; Glucose 96 mg/dl (70-99); Potassium 3.7 mmol/L (3.5-5.1); Sodium 139 mmol/L (135-145); Total Protein 7.3 g/dl (6.3-8.2); eGFR > 60.00
[2025-09-15 05:07] LABS: Urine Character Clear (Clear)
[2025-09-15 05:13] LABS: Lipase 2532 U/L (23-300)
[2025-09-15 06:00] LABS: Urine Red Blood Cell 0-2 /HPF (0-2); Urine White Cell 26-30 /HPF (0-5)
--- NOTE | 2025-09-15 06:05 | ED.GENMED ---
History of Present Illness
<Willian Keith, DO - Last Filed: 09/17/25 17:11>
General
Chief Complaint: Abdominal Pain
Source: patient and ambulance crew
Exam Limitations: none
Time Seen by Provider: 09/15/25 03:50
Nursing documentation reviewed up to this point in time: agreed with
History of Present Illness
History of Present Illness:
Note:
CHIEF COMPLAINT(S)
Abdominal pain.
HISTORY OF PRESENT ILLNESS
The patient is an 85-year-old male who presented with abdominal pain beginning at 11:30 PM the previous night. He describes the pain as being relieved somewhat by a recent bowel movement. He reports an episode of diarrhea yesterday and
self-administered loperamide (Imodium) this morning. He states that this intervention seemed to provide symptomatic relief. The patient reports no history of similar pain in the past and denies any associated chest pain, shortness of breath, fever,
chills, or nausea. He has had a cholecystectomy performed in January of the same year. The patient mentions his spouse resides in a memory care facility, and he currently lives alone.
PAST SURGICAL HISTORY
Cholecystectomy performed in January.
SOCIAL HISTORY
The patient lives alone as his resides in a memory care facility.
PHYSICAL EXAM
General: Alert, no acute distress.
Skin: Warm, dry.
Head: Normocephalic, atraumatic.
Neck: Supple, trachea midline.
Eye Ears, nose, mouth, and throat: Oral mucosa moist.
Cardiovascular: Normal peripheral perfusion, no edema.
Respiratory: Respirations are non-labored.
Gastrointestinal: Abdomen nondistended, bowel sounds present.
Back: Normal range of motion, normal alignment.
Musculoskeletal: Normal range of motion, normal strength.
Neurological: Alert and oriented to person, place, time, and situation, no focal neurological deficit observed.
Psychiatric: Cooperative, appropriate mood & affect.
PLAN
The plan is to perform a CT scan of the abdomen to further evaluate the cause of the abdominal pain.
DIFFERENTIAL DIAGNOSIS
The Differential Diagnosis includes, in no particular order and is not limited to:
1. Diverticulitis
2. Intestinal obstruction
3. Acute appendicitis
4. Colitis
5. Gastroenteritis
6. Abdominal aortic aneurysm
7. Peptic ulcer disease
8. Pancreatitis
9. Urinary tract infection
10. Constipation
Phy Exam
<Willian Keith, DO - Last Filed: 09/17/25 17:11>
Physical Exam
Physical Exam:
.
Course
<Willian Keith, DO - Last Filed: 09/17/25 17:11>
Orders/Labs/Results
Orders:
Orders
09/15/25 03:59
IV Insert/Care/Rem.- Treatment PRN
Straight cath- Treatment ONCE
09/15/25 04:08
Complete Blood Count/With Diff Urgent
Comprehensive Metabolic Panel Urgent
Lipase Urgent
Lyme Progressive Urgent
Date Specimen was Collected: 09/15/25
Time Specimen was Collected: 03:59
Comment: ADD ON
Urinalysis Reflex To Culture Urgent
Date Specimen was Collected: 09/15/25
Time Specimen was Collected: 03:59
Urine Microscopic Reflex Cult Urgent
Urine Culture Urgent
MAUREEN Source: U
Specimen Description:
Date Specimen was Collected: 09/15/25
Time Specimen was Collected: 03:59
09/15/25 04:54
CT Abd/pelvis W Iv Cont Urgent
Comment:
Reason For Exam: abd pain
09/15/25 Breakfast
NPO
Allow oral meds: Yes
Allow clear liquids: Sips of Clears
NPO with Ice Chips: Yes
09/15/25 09:14
Admit/Transfer Patient As Directed
Co-Sign Provider:
Level of Care: Inpatient admission
Assign to:: Medical/Surgical
Physician / Group: Gideon
Diagnosis: Suspected acute pancreatitis
Reason for Hospitalization: See progress note
Expected length of stay greater than two midnights?: Yes
ELOS- Estimated Length of Stay in days: 3
I certify the patient meets the requirements for IP care: Yes
PRN Pain Medication Management As Directed
May give lesser potent ordered pain med per pt: Yes
preference::
Protocol:: Medication orders for pain may be administered in a
manner that supports deferring to patient preference
when the pt is:
- Requesting an ordered lesser potent pain medication.
Least to most potent pain medications are defined
as: acetaminophen < NSAID < tramadol < opioids
(morphine, oxycodone, hydromorphone).
- Requesting a lesser dose of the same medication IF
ORDERED.
- Requesting a less intrusive route of administration
if both routes are prescribed by the provider (PO <
IV).
09/15/25 09:15
Code Status As Directed
Resuscitation Status: Full Code
09/15/25 11:06
Acetaminophen [Tylenol] 650 mg PO Q4HPRN PRN
HYDROmorphone [Dilaudid] 0.25 mg IV Q4HPRN PRN
Lactated Ringers [Lr] 1,000 ml IV 150 mls/hr
Oxycodone [Roxicodone] 5 mg PO Q4HPRN PRN
09/15/25 11:06
GASTROINTESTINAL CONSULT Routine
Consulting Provider: Angel Goode
Was physician already notified: Yes
Reason for consult: Abdominal pain with elevated lipase suspected acute pancreatitis
Activity As Directed
Activity Level: As Tolerated
I&O [Intake/ Output] As Directed
Frequency: q12h
DX Deep Vein Thrombosis Video Routine
09/15/25 12:00
Pantoprazole [Protonix] 40 mg PO DAILY
09/15/25 18:00
Enoxaparin Sodium [Lovenox] 40 mg SC QPM
09/15/25 22:00
Sertraline HCl [Zoloft] 100 mg PO HS
09/16/25 06:26
CBC/No Diff [Complete Blood Count/No Diff] IN AM
Comprehensive Metabolic Panel IN AM
Lipase IN AM
Abnormal Lab Results
09/15/25
04:08
WBC 11.1 H 10^3/uL
(4.8-10.8)
Abs Immat Gran (auto) 0.1 H 10^3/uL
(0-0.05)
Absolute Neuts (auto) 9.3 H 10^3/uL
(1.4-6.5)
Absolute Lymphs (auto) 0.8 L 10^3/uL
(1.2-3.4)
Absolute Monos (auto) 1.0 H 10^3/uL
(0.1-0.6)
Neutrophils % 83.3 H %
(42.2-75.2)
Lymphocytes % 6.7 L %
(20.5-51.1)
BUN 21 H mg/dl
(9-20)
AST 79 H U/L
(17-59)
ALT 61 H U/L
(0-50)
Lipase 2532 H* U/L
(23-300)
Urine Ketones 1+ A
(Negative)
Leukocyte Esterase Rfl 2+ A
(Negative)
Urine WBC (Reflex) 26-30 A /HPF
(0-5)
Urine Bacteria (Reflex) Moderate A
(Negative)
Urine Albumin (Reflex) 1+ A
(Neg - Trace)
09/15/25 04:08
09/15/25 04:08
Vital Signs
Initial and Last Documented VS:
Initial Vital Signs
Temp Pulse Resp BP Pulse Ox
98.3 F 62 20 149/92 99
09/15/25 03:44 09/15/25 03:44 09/15/25 03:44 09/15/25 03:44 09/15/25 03:44
Last Documented Vital Signs
Temp Pulse Resp BP Pulse Ox
98.3 F 91 18 135/67 97
09/16/25 15:05 09/16/25 15:05 09/16/25 15:05 09/16/25 15:05 09/16/25 15:05
<Aure Choi MD - Last Filed: 09/15/25 07:24>
Orders/Labs/Results
Orders:
Orders
09/15/25 03:59
IV Insert/Care/Rem.- Treatment PRN
Straight cath- Treatment ONCE
09/15/25 04:08
Complete Blood Count/With Diff Urgent
Comprehensive Metabolic Panel Urgent
Lipase Urgent
Lyme Progressive Urgent
Date Specimen was Collected: 09/15/25
Time Specimen was Collected: 03:59
Comment: ADD ON
Urinalysis Reflex To Culture Urgent
Date Specimen was Collected: 09/15/25
Time Specimen was Collected: 03:59
Urine Microscopic Reflex Cult Urgent
Urine Culture Urgent
MAUREEN Source: U
Specimen Description:
Date Specimen was Collected: 09/15/25
Time Specimen was Collected: 03:59
09/15/25 04:54
CT Abd/pelvis W Iv Cont Urgent
Comment:
Reason For Exam: abd pain
09/15/25 Breakfast
NPO
Allow oral meds: Yes
Allow clear liquids: Sips of Clears
NPO with Ice Chips: Yes
09/15/25 09:14
Admit/Transfer Patient As Directed
Co-Sign Provider:
Level of Care: Inpatient admission
Assign to:: Medical/Surgical
Physician / Group: Gideon
Diagnosis: Suspected acute pancreatitis
Reason for Hospitalization: See progress note
Expected length of stay greater than two midnights?: Yes
ELOS- Estimated Length of Stay in days: 3
I certify the patient meets the requirements for IP care: Yes
PRN Pain Medication Management As Directed
May give lesser potent ordered pain med per pt: Yes
preference::
Protocol:: Medication orders for pain may be administered in a
manner that supports deferring to patient preference
when the pt is:
- Requesting an ordered lesser potent pain medication.
Least to most potent pain medications are defined
as: acetaminophen < NSAID < tramadol < opioids
(morphine, oxycodone, hydromorphone).
- Requesting a lesser dose of the same medication IF
ORDERED.
- Requesting a less intrusive route of administration
if both routes are prescribed by the provider (PO <
IV).
09/15/25 09:15
Code Status As Directed
Resuscitation Status: Full Code
09/15/25 11:06
Acetaminophen [Tylenol] 650 mg PO Q4HPRN PRN
HYDROmorphone [Dilaudid] 0.25 mg IV Q4HPRN PRN
Lactated Ringers [Lr] 1,000 ml IV 150 mls/hr
Oxycodone [Roxicodone] 5 mg PO Q4HPRN PRN
09/15/25 11:06
GASTROINTESTINAL CONSULT Routine
Consulting Provider: Angel Goode
Was physician already notified: Yes
Reason for consult: Abdominal pain with elevated lipase suspected acute pancreatitis
Activity As Directed
Activity Level: As Tolerated
I&O [Intake/ Output] As Directed
Frequency: q12h
DX Deep Vein Thrombosis Video Routine
09/15/25 12:00
Pantoprazole [Protonix] 40 mg PO DAILY
09/15/25 18:00
Enoxaparin Sodium [Lovenox] 40 mg SC QPM
09/15/25 22:00
Sertraline HCl [Zoloft] 100 mg PO HS
09/16/25 06:26
CBC/No Diff [Complete Blood Count/No Diff] IN AM
Comprehensive Metabolic Panel IN AM
Lipase IN AM
Abnormal Lab Results
09/15/25
04:08
WBC 11.1 H 10^3/uL
(4.8-10.8)
Abs Immat Gran (auto) 0.1 H 10^3/uL
(0-0.05)
Absolute Neuts (auto) 9.3 H 10^3/uL
(1.4-6.5)
Absolute Lymphs (auto) 0.8 L 10^3/uL
(1.2-3.4)
Absolute Monos (auto) 1.0 H 10^3/uL
(0.1-0.6)
Neutrophils % 83.3 H %
(42.2-75.2)
Lymphocytes % 6.7 L %
(20.5-51.1)
BUN 21 H mg/dl
(9-20)
AST 79 H U/L
(17-59)
ALT 61 H U/L
(0-50)
Lipase 2532 H* U/L
(23-300)
Urine Ketones 1+ A
(Negative)
Leukocyte Esterase Rfl 2+ A
(Negative)
Urine WBC (Reflex) 26-30 A /HPF
(0-5)
Urine Bacteria (Reflex) Moderate A
(Negative)
Urine Albumin (Reflex) 1+ A
(Neg - Trace)
09/15/25 04:08
09/15/25 04:08
Vital Signs
Initial and Last Documented VS:
Initial Vital Signs
Temp Pulse Resp BP Pulse Ox
98.3 F 62 20 149/92 99
09/15/25 03:44 09/15/25 03:44 09/15/25 03:44 09/15/25 03:44 09/15/25 03:44
Last Documented Vital Signs
Temp Pulse Resp BP Pulse Ox
98.3 F 91 18 135/67 97
09/16/25 15:05 09/16/25 15:05 09/16/25 15:05 09/16/25 15:05 09/16/25 15:05
<Willian Keith DO - Last Filed: 09/17/25 17:11>
*Pulse Oximetry
SaO2: 93
Oxygen Mode of Delivery: Room air
*Critical Care Note
Total Time (30-74mins, 75-104mins- exclusive of procedures): Not Applicable
<Aure Choi MD - Last Filed: 09/15/25 07:24>
*Radiology
Radiology exam reviewed: radiology read reviewed
*Pulse Oximetry
Patient hypoxic: no
ED Attending Note
<Willian Keith DO - Last Filed: 09/17/25 17:11>
-
Portions of this chart may have been created with voice recognition software.� Occasional wrong word or��sound alike� substitutions may have occurred due to the inherent limitations of voice recognition software.
Discharge Plan
Departure
Patient Disposition: Admit
Date of Disposition: 09/15/25
Time of Disposition: 07:19
Admit to: Med/Surg
Presentation/result/management discussed w/ accepting MD/DO: Hospitalist
Discharge Problem:
Hematuria
Interventions
Interventions:
*Risk Screen - Suicide Last Done: 09/15/25 03:44
*General Assessment Last Done: 09/15/25 03:44
*Neglect/Abuse Screening Last Done: 09/15/25 03:44
*ED- Fall Risk Assessment Last Done: 09/15/25 03:44
*ED COVID-19 Vaccine History Last Done: 09/15/25 05:13
*ED Influenza Vaccine History Last Done: 09/15/25 03:44
*Nursing Disposition Last Done: 09/15/25 10:32
ZB-Rgokyt-Jophzquonz Assessment Last Done: 09/15/25 07:30
Discharge Date and Time
Discharge Date/Time: 09/15/25 10:52
--- NOTE | 2025-09-15 08:35 | CM ---
Patient seen at bedside in ED. Patient states that he lives alone with his in [facility] memory Care unit. Patient lives in a 2 story home with no DME. Patient PCP is Dr. Campuzano and he uses the [facility]. Patient states he has support from his son
and daughter, no needs for additional supports and he is independent of ADL's and IADL's. Patient plan is to return home with no needs when medically appropriate. CM will continue to follow for discharge planning needs.
Plan; home with no needs watch for any VN needs
--- NOTE | 2025-09-15 09:28 | HPS.HSE ---
Family Physician
-
Family Physician: Iban Campuzano
Chief Complaint
-
Abdominal pain
History of Present Illness
Patient had his gallbladder removed summer of this year. No recurrence of abdominal pain after that.
Was doing fine but on Thursday he had 2 loose stools. Yesterday was okay but last night at 1130 he got acute abdominal pain. He felt like rockhard in the upper abdomen. It lasted for couple of hours and he could not get settled so he called
ambulance and came to the ER.
After arrival to ER he had 1 more bowel movement which was solid and his pain dissipated. He says he did not get anything for pain here.
No nausea or vomiting with it. No fever or chills. Denies shortness of breath or chest pain.
Denies experiencing similar pain recently.
Denies peptic ulcer disease. On PPI for GERD.
Evaluation in the ED showed mild transaminitis, significant elevation of lipase, questionable gastric wall thickening versus underdistention, mildly dilated intrahepatic biliary system possibly post cholecystectomy, urinary bladder stones.
He is asymptomatic from urinary bladder stones. No prior history of nephrolithiasis. No dysuria or frequency. Denies noticing any hematuria. No history of UTI.
Denies alcohol use
Medical History
Past Medical History
Past Medical History: Reports Other
Additional Past Medical History:
GERD
Depression
Past Surgical History: Reports Other
Additional Past Surgical History:
Great ankles Achilles rupture repair
Inguinal hernia repair 1980s unsure what side
Social History
Tobacco: Non-smoker
Alcohol: None
Drug: None
Personal: Single
Living: Alone
Employment: Retired
Family History
Family History: Other (Father history dementia, DM 2, mother history breast cancer, fall with fractured leg of pneumonia, 2 sisters healthy)
Allergies / Home Medications
Allergies reflects when Allergies were last updated in [facility].
Home Medications with original date entered in [facility]
Allergy/Medication List:
Allergies
Allergy/AdvReac Type Severity Reaction Status Date / Time
Penicillins Allergy Pharmacy Verified 02/26/25 14:13
to Review
Home Medications
omeprazole 1 tab PO . DIRECTED 02/26/25
sertraline 1 tab PO . DIRECTED 02/26/25
Review of Systems
-
A 12 point ROS was completed and negative except as noted: Yes
Physical Exam
Vital Signs
Vital Signs
Temp Pulse Resp BP Pulse Ox
98.6 F 64 17 120/55 96
09/15/25 08:06 09/15/25 08:06 09/15/25 08:06 09/15/25 08:06 09/15/25 08:06
Physical Exam
General: Comfortable
HEENT: Moist mucous membranes
Respiratory: Clear and Non Labored Respirations; No Accessory Resp Muscle Use
Cardiac: S1/S2 and Regular Rhythm; No Tachycardia
GI: Soft, Non Distended, Normal Bowel Sounds and Tender (Right upper quadrant)
Neuro: AO x 3 and No Motor Deficits; No Slurred Speech or Facial Droop
Psych: Calm and Intact Judgment/Insight; No Confused
Laboratory Results
-
09/15/25 04:08
09/15/25 04:08
Laboratory Results
Total Bilirubin 0.9 mg/dl (0.2-1.3) 09/15/25 04:08
AST 79 U/L (17-59) H 09/15/25 04:08
ALT 61 U/L (0-50) H 09/15/25 04:08
Alkaline Phosphatase 120 U/L (38-126) 09/15/25 04:08
Lipase 2532 U/L (23-300) H* 09/15/25 04:08
Data Reviewed
-
CT Scan: Report Reviewed by me (CT of the abdomen pelvis)
Lab Data: Labs Reviewed by me
Impression/Plan
-
Acute abdominal pain with mild transaminitis and elevated lipase
Clinical picture is suspicious for acute pancreatitis. No alcohol abuse. Status postcholecystectomy. Rule out biliary ductal disease versus primary pancreatic issue.
Admit to hospital for further evaluation.
Keep n.p.o. except for meds and sips of water.
Start on IV fluids
Obtain MRI of the abdomen and MRCP.
Consult GI.
GERD
CT raises concern for gastric wall thickening versus underdistention. Clinically no symptoms. Suspect more in the distention. Continue with his home dose of PPI. If no other etiology evident of abdominal pain and if recurrent consider endoscopic
eval then.
Urinary bladder stone seems to be asymptomatic. New diagnosis.
Microscopic hematuria noted. No symptoms of UTI. Advised to follow-up with urology as outpatient.
Depression-continue sertraline
Full code
Discussed with daughter at bedside regarding the evaluation and treatment plan.
--- NOTE | 2025-09-15 10:31 | EDRN ---
this RN called the receiving unit and notified them that paper report was going to be tubed up
--- NOTE | 2025-09-15 11:02 | CON.GI ---
Consultation
-
Date/Time Consultation Requested: 09/15/25 11:06
Date/Time Consultation Performed: 09/15/25 11:06
Requesting Provider: Dr Meneses
Performing Provider: Dr Goode
Reason for Consultation: abdominal pain with elevated lipase suspected acute pancreatitis
Medical History
Chief Complaint / HPI
History of Present Illness:
85yoM PMG GERD, cholecystectomy January of this year presenting with resolved abdominal pain and elevated lipase.
Pt reports having diarrhea Thursday that resolved with a dose of Imodium. Last night, he awoke at around 11pm with abdominal pain across his upper abdomen that persisted for about 2 hrs prompting him to present to the ED. Once he was in the ED, he
had a BM and the pain resolved. Pt denies pain, nausea, vomiting, blood in stool, reflux, throat pain, mouth pain, diarrhea or constipation. He reports some mild leg cramping at this time, otherwise no symptoms. Pt denies changes in appetite, diet,
recent alcohol consumption, travel.
Of note, he reports having a tick bite within the last 2 weeks. Denies new joint pain or rash.
Past Medical History
Past Medical History: GERD (pt denies symptoms) and Psychiatric
Past Surgical History: Cholecystectomy (02/27/25)
Social History
Tobacco: Non-Smoker
Alcohol: Occasional
Drug: None
Personal:
Living: Alone ( moved to [facility] April of this year)
Employment: Retired
Allergies / Home Medications
Allergy/AdvReac Type Severity Reaction Status Date / Time
Penicillins Allergy Pharmacy Verified 02/26/25 14:13
to Review
�Medication �Instructions �Recorded
omeprazole 20 mg capsule,delayed 20 mg PO DAILY Gastrointestinal 02/27/25
release Issue
sertraline 100 mg tablet 100 mg PO HS Mental Health/Anxiety 09/15/25
therapeutic multivitamin 1 tab PO DAILY Supplement 09/15/25
Review of Systems
-
History Source: Patient
All other systems: A 12 pt ROS was Negative except as stated above in HPI
Musculoskeletal: Reports Other (leg cramps)
Vital Signs
Temp Pulse Resp BP Pulse Ox
98.6 F 71 11 128/64 97
09/15/25 08:06 09/15/25 10:30 09/15/25 10:30 09/15/25 10:00 09/15/25 10:30
Physical Exam
Exam
General: Well Developed, Well Nourished, No Apparent Distress and Comfortable
HEENT: Normocephalic, Anicteric, Moist Mucous Membranes and Atraumatic
Respiratory: Clear and Non Labored Respirations
Cardiac: S1/S2 and Regular Rhythm
GI: Soft, Non Tender and Non Distended
Musculoskeletal: No Edema
Skin: Warm and Dry; Negative Rash
Neuro: AO x 3 and Nonfocal/Grossly Intact
Psych: Calm
Results
WBC 11.1 10^3/uL (4.8-10.8) H 09/15/25 04:08
Hgb 14.6 g/dL (13.0-18.0) 09/15/25 04:08
Hct 42.6 % (39.0-52.0) 09/15/25 04:08
MCV 87.3 fL (80.0-94.0) 09/15/25 04:08
Plt Count 215 10^3/uL (130-400) 09/15/25 04:08
Absolute Neuts (auto) 9.3 10^3/uL (1.4-6.5) H 09/15/25 04:08
Sodium 139 mmol/L (135-145) 09/15/25 04:08
Potassium 3.7 mmol/L (3.5-5.1) 09/15/25 04:08
Chloride 107 mmol/L (98-107) 09/15/25 04:08
Carbon Dioxide 26 mmol/L (22-30) 09/15/25 04:08
BUN 21 mg/dl (9-20) H 09/15/25 04:08
Creatinine 0.9 mg/dL (0.7-1.3) 09/15/25 04:08
Calcium 9.8 mg/dl (8.4-10.2) 09/15/25 04:08
Total Bilirubin 0.9 mg/dl (0.2-1.3) 09/15/25 04:08
AST 79 U/L (17-59) H 09/15/25 04:08
ALT 61 U/L (0-50) H 09/15/25 04:08
Alkaline Phosphatase 120 U/L (38-126) 09/15/25 04:08
Lipase 2532 U/L (23-300) H* 09/15/25 04:08
Diagnostic Image Results:
Prior GI Procedures:
EGD: 06/09/18
Impression: - Normal esophagus.
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
short-segment Davila's disease. Biopsied.
- Widely patent, non-obstructing and mild Schatzki ring.
- Small hiatal hernia.
- Normal mucosa was found in the entire stomach.
Biopsied.
- Multiple benign appearing gastric polyps. Biopsied.
- Normal examined duodenum. Biopsied.
Colonoscopy: 06/01/25
Impression: - Diverticulosis in the sigmoid colon and in the
descending colon.
- Non-bleeding internal hemorrhoids.
Assessment / Plan
-
85yoM PMH GERD, cholecystectomy 02/27/25 presenting with resolved abdominal pain, elevated lipase and mild transaminitis.
Pt reports abdominal pain that resolved with BM overnight, now complaining of no issues. No blood in stool, diarrhea, constipation, nausea, or vomiting. Elevated lipase and mild transaminitis might be indicative passed stone. No hx alcohol use,
recent travel, or diet change. Recent hx of tick bite, not unreasonable to evaluate for tick borne illness. Denies fevers, chills or other constitutional symptoms beyond leg cramps.
#elevated lipase
# mild transaminitis
- MRCP to evaluate for retained stone
- Lyme serology
-
-
Thank you for consultation and allowing me to participate in the patient's care. Please call the [facility] GI physician during the after hours with any questions or concerns.
[2025-09-15] MEDS: LR 1000 IV ×2 (11:20→18:08)
[2025-09-15] MEDS: PROTONIX 40 MG PO (12:24)
[2025-09-15] MEDS: TYLENOL 650 MG PO ×2 (13:28→21:09)
[2025-09-15] MEDS: LOVENOX 40 MG SC (17:54)
[2025-09-15] MEDS: ZOLOFT 100 MG PO (21:03)
[2025-09-16] MEDS: LR 1000 IV ×2 (00:44→07:44)
--- NOTE | 2025-09-16 06:32 | W.PN.GI.CBS2 ---
Today's Communication / Plan
-
No further abdominal pain or discomfort since admission. Still awaiting MRI, once obtained would start CLD and advance to low-fat diet as tolerated. If ongoing improvement in the next 24 hrs and MRI reassuring, likely can follow-up with GI as an
outpatient. See rest of care as outlined below.
Assessment / Plan
-
Mr. Luna is a very pleasant 85 y.o male with past medical history of acute cholecystitis (s/p prior lap don with (-) IOC 01/2025) who presented to the ED with abdominal pain. Reports feeling in his [facility] state of health until earlier this week
when he had some looser stools which eventually resolved and then developed acute, epigastric abdominal pain last evening with symptoms radiating in the back. Denies any nausea, vomiting or other fevers/chills. Denies any prior episodes of pain like
this in the past or prior episodes of pancreatitis. No unintentional weight loss, significant alcohol use or other new medications. Denies any prior constipation or significant NSAID use. He called his son who is a PCP and advised him to call an
ambulance to come to the ED for further evaluation. In the ED, found to have labs significant for AST 79 and ALT 61 with normal ALP 120 and T Bili 0.9. Lipase elevated 2532. CBC with WBC 11.1 with left shift and Hgb 14.[address] imaging
revealed mild gastric wall thickening (c/f gastritis versus nondistention), multiple stones in the urinary bladder and mild prostate enlargemetn along with intrahepatic biliary ductal dilatation felt to be related to post-cholecystectomy state.
Otherwise, the pancreas was normal without any mass or adjacent inflammatory changes. Clinically, based on his symptomatology and elevated lipase meets criteria for pancreatitis. Mildly elevated transaminases but without any evidence of obstruction
or significant biliary ductal dilatation on CT imaging. No other significant alcohol use, new medications and normal calcium and prior normal TGs 69 (01/2205). Would still benefit from a MRI/MRCP for further evaluation to definitely exclude any
potential sludge and/or microlithiasis as potential source along with ruling out potential pancreatic neoplasm given his age although doubt clinically.
#Mild, Acute Pancreatitis
#Prior Lap Don (01/2025)
#Mildly Elevated Transaminases- Improving
#Looser Stools- Resolved
Recommendations:
- Keep NPO pending MRI. Once obtained, may start CLD and advance as tolerated to low-fat diet
- May stop IVF once able to start p.o intake
- Trend LFTs q daily- improving
- Continue home Omeprazole once daily
- F/u MRI/MRCP WWO contrast for further evaluation to exclude choledocho and for structural imaging of pancreas to exclude lesion
- No plans for any endoscopic intervention at this time
- No further looser stools, if evidence of diarrhea would obtain stool studies
- Pain control and IV anti-emetics PRN
- Rest of care as per primary team
GI will continue to follow. Please call with any questions or concerns.
Subjective
Subjective
Date of Service: September 16, 2025
- Ordered for MRI/MRCP
- No acute events overnight, repeat LFTs improving with down-trending transaminases
Feeling well this AM and continues to deny any further epigastric abdominal pain or other discomfort this admission. Had one brown BM this AM and passing flatus. No other nausea/vomiting or other constitutional symptoms. Hungry and hoping to go for
MRI later today.
Objective
Data Reviewed
Laboratory Data:
Laboratory Results
Total Bilirubin 0.9 mg/dl (0.2-1.3) 09/15/25 04:08
AST 79 U/L (17-59) H 09/15/25 04:08
ALT 61 U/L (0-50) H 09/15/25 04:08
Alkaline Phosphatase 120 U/L (38-126) 09/15/25 04:08
Lipase 2532 U/L (23-300) H* 09/15/25 04:08
Vital Signs and I&O:
Vital Signs
Temp Pulse Resp BP Pulse Ox
98.1 F 62 16 143/67 96
09/15/25 23:00 09/15/25 23:00 09/15/25 23:00 09/15/25 23:00 09/15/25 23:00
I&O
09/14/25 09/15/25 09/16/25
06:59 06:59 06:59
Intake Total 2280 / 2280
Balance 2280 / 2280
Physical Exam
Physical Exam
HEENT: Anicteric and Moist mucous membranes
Pulmonary: Other (Normal WOB on room air)
GI: Soft, Non Distended and Non Tender
Extremities: Edema
Neuro: Non Focal
[2025-09-16 07:35] LABS: ALT (SGPT) 62 U/L (0-50); AST (SGOT) 58 U/L (17-59); Albumin 3.5 g/dl (3.5-5.0); Alkaline Phosphatase 109 U/L (38-126); Blood Urea Nitrogen 13 mg/dl (9-20); Calcium 8.6 mg/dl (8.4-10.2); Carbon Dioxide 29 mmol/L (22-30); Chloride 105 mmol/L (98-107); Estimated Creatinine Clearance 54 ml/min; Glucose 74 mg/dl (70-99); Lipase 109 U/L (23-300); Potassium 3.9 mmol/L (3.5-5.1); Sodium 139 mmol/L (135-145); Total Protein 5.8 g/dl (6.3-8.2); eGFR > 60.00
[2025-09-16 07:39] LABS: Hematocrit 38.8 % (39.0-52.0); Hemoglobin 12.9 g/dL (13.0-18.0); Mean Corp Hgb Conc. 33.2 g/dL (33.0-37.0); Mean Corpuscular Volume 91.7 fL (80.0-94.0); Platelet Count 161 10^3/uL (130-400); Red Cell Dist. Width 12.5 % (11.5-14.5)
[2025-09-16] MEDS: PROTONIX 40 MG PO (07:44)
[2025-09-16 08:23] VITALS: BP 117/59
--- NOTE | 2025-09-16 10:25 | W.PN.HOSP.TC ---
Today's Communication/Plan
-
Follow MRI of the abdomen and MRCP
Plan clear liquid diet after MRI of the abdomen
Assessment / Plan
Assessment / Plan
Acute abdominal pain with mild transaminitis and elevated lipase
Clinical picture is suspicious for acute pancreatitis. No alcohol abuse. Status postcholecystectomy. Rule out biliary ductal disease versus primary pancreatic issue.
Resolved abdominal pain. Normalized lipase.
Await MRI of the abdomen and MRCP.
Continue with IV fluids and will start on liquid diet once MRI is done.
Appreciate GI input.
GERD
CT raises concern for gastric wall thickening versus underdistention. Clinically no symptoms. Suspect more in the distention. Continue with his home dose of PPI. If no other etiology evident of abdominal pain and if recurrent consider endoscopic
eval then.
Urinary bladder stone seems to be asymptomatic. New diagnosis.
Microscopic hematuria noted. No symptoms of UTI. Advised to follow-up with urology as outpatient.
Depression-continue sertraline
Full code
Discussed with GI today
Anticipated Discharge: 24 - 48 hours
Subjective/Interval History
-
Date of Service: September 16, 2025
Resolved abdominal pain. Voices no specific complaints.
No fever or chills.
Patient feels hungry.
Objective Data
-
Labs:
Laboratory Results
09/16/25
06:26
WBC 6.3
Hgb 12.9 L
Hct 38.8 L
Plt Count 161 D
Sodium 139
Potassium 3.9
Chloride 105
Carbon Dioxide 29
BUN 13
Creatinine 0.9
Glucose 74
Calcium 8.6
Total Bilirubin 1.1
AST 58
ALT 62 H
Alkaline Phosphatase 109
Vital Signs:
Vital Signs
Temp Pulse Resp BP Pulse Ox
97.6 F 65 17 117/59 96
09/16/25 08:23 09/16/25 08:23 09/16/25 08:23 09/16/25 08:23 09/16/25 08:23
I&O
09/15/25 09/16/25 09/17/25
06:59 06:59 06:59
Intake Total 2279
Balance 2279
Physical Exam
-
General: Comfortable
Respiratory: Clear to Auscultation, Non Labored Respirations and Accessory Resp Muscle Use
Cardiac: Regular Rhythm and S1/S2; Negative Tachycardic
GI: Soft and Nontender
Neuro: AO x 3
Data Reviewed
-
Labs: Labs Reviewed by me
--- NOTE | 2025-09-16 13:47 | W.DCSUMMARY ---
Discharge Summary
Discharge Data
Date of Admission: 09/15/25
Date of Discharge: 09/16/25
-
Pending Results: No
Hospital Course
Primary diagnosis:
Acute pancreatitis
Secondary diagnosis:
Laparoscopic cholecystectomy/2024
Gastroesophageal reflux disease
Depression
Hospital course:
84-year-old gentleman with prior history of acute cholecystitis status post lap don and negative IntraOp cholangiogram in January of this year presented with abdominal pain. Prior to that he had acute onset of diarrheal stools followed by nausea
and abdominal pain which resolved in few hours. On presentation here he was noted to have mild transaminitis with AST of 79 which normalized next day and ALT of 61 which remained the same. No cholestasis noted. Lipase was 2532.
Abdominal imaging including MRI of the abdomen and MRCP showed no evidence of choledocholithiasis but common hepatic duct was 13 mm , common bile duct was 10 mm, and slight prominence of the central intrahepatic ducts. [place] more reflective of
adaptive changes from prior cholecystectomy as well as patient age. He remained symptom-free. Was seen by GI who felt this is case of mild pancreatitis of unclear etiology. He was tolerating a low-fat diet prior to discharge. Advise follow-up
with GI as outpatient. No other medication changes were made on this admission.
Consultants on board:
GI-Angel Nguyen
Discharge Plan
-
Patient Disposition: Home (Routine Discharge)
Discharge Diagnosis/Procedures: Acute pancreatitis
Condition: Fair
Diet: Low Fat
Additional Diets: Low fat diet for a week and resume your prior diet
Activity: As tolerated
Driving Restrictions: As prior to admission
Bathing Restrictions: None
Referrals:
Iban Campuzano MD [Family Provider, Family Practice] - in less than 1 week
Angel Goode DO [Active, Gastroenterology] - in six weeks
Prescriptions:
Continued
omeprazole 20 mg capsule,delayed release(DR/EC)
20 mg PO DAILY
sertraline 100 mg Tablet
100 mg PO HS
therapeutic multivitamin Tablet
1 tab PO DAILY
Discharge Orders:
Discharge Patient (As Directed); Ordered 09/16/25
Ordered By: Oleg Meneses
Discharge Date and Time
Print Language: TANZANIAN
--- NOTE | 2025-09-16 14:35 | CM ---
Spoke with pt and Sadia dgt in room.
Pt said he will be dc today if tolerates his dinner.
Offered VN he declined need.
Pt agrees with discharge.
Sadia will drive him home.
PLAN Home no needs
[2025-09-16 15:05] VITALS: BP 135/67
[2025-09-16] MEDS: LR IV (17:00)
[2025-09-16] MEDS: LOVENOX SC (17:01)
[2025-09-18 12:26] LABS: Lyme Antibody Screen, EIA Negative (Negative)
== END 2025-09-16 17:44 | disposition home or self-care (01) | DRG 440 ==
LOC: 3 WEST ACU 09:55
PROVIDERS: ADMITTING PHYSICIAN Internal Medicine; CONSULT PHYSICIAN Student in an Organized Health Care Education/Training Program; EMERGENCY PHYSICIAN Student in an Organized Health Care Education/Training Program; FAMILY PHYSICIAN Family Medicine
DX: K85.90 Acute pancreatitis without necrosis or infection, unspecified (principal); K21.9 Gastro-esophageal reflux disease without esophagitis; F32.A Depression, unspecified; K57.30 Diverticulosis of large intestine without perforation or abscess without bleeding; Z83.3 Family history of diabetes mellitus; Z80.3 Family history of malignant neoplasm of breast; Z88.0 Allergy status to penicillin; N21.0 Calculus in bladder; R31.29 Other microscopic hematuria; Z90.49 Acquired absence of other specified parts of digestive tract
CPT/HCPCS: 74177; 74183; 80053; 81003; 81015; 83690; 85025; 85027; 86618; 87086; 99284; Q9967